=== PATIENT | male | born 1980 | race Caucasian/White ===

== ENCOUNTER → 2019-12-18 16:12 | Outpatient (CLI) | payer OTHER, SELFPAY ==
[2016-04-16 09:41] VITALS: BMI 20.9
[2019-12-18 16:20] LABS: Red Blood Cells-Urine 0 SEEN /hpf (0-5); Squamous Epithelial Cells - UA 0 SEEN /hpf (0-5); White Blood Cells 0 SEEN /hpf (0-5)
[2019-12-18 17:42] LABS: Absolute Lymphocyte Count 2.48 X10^3/uL (0.83-4.51); Absolute Neutrophil Count 3.9 X10^3/uL (2.0-7.7); Basophil# 0.02 X10^3/uL; Basophil% 0.3 % (0-1); Eosinophils% 1.4 % (0-5); Hematocrit 43.4 % (40-54); Hemoglobin 14.6 g/dL (13.0-16.5); Lymphocyte # 2.48 X10^3/ul (4.0); Lymphocyte % 34.9 % (19-41); Mean Corp Hgb Conc 33.6 g/dL (32-36); Mean Corpuscular Hgb 31.9 pg (27.0-32.0); Mean Platelet Vol. 9.9 fl (6.2-12.0); Monocyte# 0.62 X10^3/uL; Monocyte% 8.7 % (0-10); NRBC Flagged by Analyzer 0 % (0-5); Neutrophil # 3.88 X10^3/uL (2.7-7.7); Neutrophil % 54.6 % (47-70); Platelet Count 320 K/mm3 (150-450); RBC Distribution Width CV 12.5 % (11.6-14.6); RBC Distribution Width SD 43.5 fl (35.1-43.9); Red Blood Count 4.57 M/mm3 (4.6-6.2); White Blood Count 7.1 K/mm3 (4.4-11.0)
[2019-12-18 18:05] LABS: ALB/GLOB Ratio 1.1 RATIO (0.9-2.4); AST(SGOT) 16 U/L (15-37); Alanine Aminotransfer ALT/SGPT 26 U/L (16-61); Albumin, Serum 3.9 g/dL (3.2-5.0); Alkaline Phosphatase 84 U/L (45-117); Anion Gap 5 (5-15); BUN 15 mg/dL (7-18); BUN/Creat Ratio 15.5 RATIO (10-20); CPK Total, Creatine Kinase 142 U/L (39-308); Chloride 108 mmol/L (98-107); Creatinine, Serum 0.97 mg/dL (0.70-1.30); EST Glomerular Filtration Rate 91 mL/min (>60); Est Glom Filt Rate - Afr Amer 111 mL/min (>60); Globulin 3.6 g/dL (2.2-4.2); Glucose 92 mg/dL (74-106); Potassium 3.7 mmol/L (3.5-5.1); Protein, Total 7.5 g/dL (6.4-8.2); Sodium Level 140 mmol/L (136-145)
[2019-12-18 18:33] LABS: Color, Urine Yellow (Yellow); Glucose, Dipstick Normal (Normal); Ketone-Dipstick 5 mg/dl (Negative); Leukocyte Esterase-Dipstick 25 /ul (Negative); Nitrite-Dipstick Negative (Negative); Occult Blood-Urine 10 /ul (Negative); Protein-Dipstick Negative (Negative); Specific Gravity, Urine 1.025 (1.002-1.030); Urine Clarity Clear (Clear); Urine Urobilinogen 1 mg/dl (Normal)
[2019-12-18 18:38] LABS: Urine Bilirubin Dipstick 1 mg/dL (Negative)
[2019-12-18 18:54] LABS: Bacteria RARE /hpf (None Seen); Mucous, Urine 2+ /hpf (<or=2+)
[2019-12-24 14:51] LABS: Aldolase 4.2 U/L (3.3-10.3)
== END ==
PROVIDERS: Referring Provider Physician Assistant; Visit Provider Physician Assistant
DX: L93.0 Discoid lupus erythematosus (principal)
CPT/HCPCS: 36415; 80053; 81001; 82085; 82550; 85025; 86038; 86225; 86226

== ENCOUNTER → 2020-08-12 15:00 | Outpatient (CLI) | payer OTHER, SELFPAY ==
[2016-04-16 09:41] VITALS: BMI 20.9
[2020-08-12 17:45] LABS: Erythrocyte Sedimentation Rate < 1 mm/hr (0-20)
[2020-08-12 17:53] LABS: CRP < 2.90 mg/L (0.0-3.0); Rheumatoid Factor < 10.0 IU/mL (<15)
[2020-08-14 16:10] LABS: ANTINUCLEAR ANTIBODIES DIRECT Positive (Negative); Anti-dsDNA Ab 1 IU/mL (0-9)
== END ==
PROVIDERS: PCP Family Medicine; Referring Provider Family Medicine; Visit Provider Family Medicine
DX: R76.8 Other specified abnormal immunological findings in serum (principal)
CPT/HCPCS: 36415; 85652; 86038; 86140; 86225; 86431

== ENCOUNTER 2021-04-24 11:12 | Outpatient (CLI) | payer OTHER, SELFPAY ==
--- NOTE | 2021-04-24 11:16 | RAD_ITS ---
STUDY: X-RAY - RIGHT ANKLE REASON FOR EXAM: Male, 40 years old. twisted right ankle while playing hockey last night, lateral side pain and bruising TECHNIQUE: 3 view(s) of the ankle. COMPARISON: None. FINDINGS: 2 acute oblique fractures are present through the distal one third fibular shaft at the level of the syndesmosis with mild displacement. The overlying soft tissues are mildly to moderately swollen. Normal distal tibia. Normal medial and lateral malleoli. Normal tibiotalar articulation and ankle mortise. Normal visualized talus and calcaneus. The visualized subtalar, talonavicular, calcaneocuboid and tarsal articulations are normal. RAD/Ankle min 3 Views IMPRESSION: 1. 2 acute oblique fractures are present through the distal one third fibular shaft at the level of the syndesmosis with mild displacement. Electronically Signed: Yobany Dye MD at 21:24 EST ,
== END 2021-04-24 23:59 | disposition home or self-care (01) ==
PROVIDERS: Referring Provider Family Medicine; Visit Provider Family Medicine
DX: S82.831A Other fracture of upper and lower end of right fibula, initial encounter for closed fracture (principal); X50.1XXA Overexertion from prolonged static or awkward postures, initial encounter
CPT/HCPCS: 73610

== ENCOUNTER 2021-05-01 09:04 | Outpatient (CLI) | payer OTHER, SELFPAY ==
--- NOTE | 2021-05-01 09:07 | RAD_ITS ---
STUDY: X-RAY - RIGHT ANKLE REASON FOR EXAM: Male, 40 years old. Ankle pain. Fracture 1 week ago. TECHNIQUE: 3 view(s) of the ankle. COMPARISON: 04/24/2021. FINDINGS: Stable distal fibular fracture originating at the tibiotalar joint. Normal medial and lateral malleoli. Normal tibiotalar articulation and ankle mortise. Normal visualized talus and calcaneus. The visualized subtalar, talonavicular, calcaneocuboid and tarsal articulations are normal. Stable lateral soft tissue swelling. RAD/Ankle min 3 Views IMPRESSION: Stable distal fibular fracture with lateral soft tissue swelling. No complications identified. Electronically Signed: Ashish Mcgee MD at 9:34 EST ,
== END 2021-05-01 23:59 | disposition home or self-care (01) ==
LOC: MTRAD 09:06
PROVIDERS: PCP Family Medicine; Referring Provider Family Medicine; Visit Provider Family Medicine
DX: S82.831A Other fracture of upper and lower end of right fibula, initial encounter for closed fracture (principal); X58.XXXA Exposure to other specified factors, initial encounter
CPT/HCPCS: 73610